=== PATIENT | male | born 1950 | race Caucasian/White ===

== ENCOUNTER 2017-10-13 05:14 | Inpatient (IN) | payer MEDICARE, OTHER ==
[2017-10-13] MEDS ORDERED: HYDROcodone/Acetaminophen 5/325 mg Tablet ONE (05:49)
[2017-10-13 05:59] LABS: #Eosinphils 0.1 thou/uL (0.0-0.7); #Lymphocytes 2.4 thou/uL (1.20-3.40); #Monocytes 0.2 thou/uL (0.11-0.59); #Neutrophils 10.3 thou/uL (1.40-6.50); %Basophils 0.3 % (0.0-1.0); %Eosinophils 0.4 % (0.0-10.0); %Lymphocytes 18.6 % (21.0-51.0); %Monocytes 1.7 % (0.0-10.0); Hematocrit 53.3 % (42.0-52.0); Mean Platelet Volume 8.7 fL (7.4-10.4); Red Blood Cell (RBC) Count 5.68 mill/uL (4.70-6.10); White Blood Cell (WBC) Count 13.1 thou/uL (4.8-10.8)
[2017-10-13] MEDS ORDERED: Acetaminophen 325 MG TAB ONE (06:14)
[2017-10-13 06:48] LABS: Lactic Acid - Sepsis 3.5 mmol/L (0.5-2.2)
[2017-10-13 06:53] LABS: Anion Gap 14 mmol/L (10-20); BUN (Urea Nitrogen) 24 mg/dL (8.4-25.7); Calc. Creatinine Clearance 0 mL/min (70-130); Carbon Dioxide 25 mmol/L (23-31); Chloride 105 mmol/L (98-107)
[2017-10-13 06:54] LABS: ALT (SGPT) 22 U/L (8-55); AST (SGOT) 18 U/L (5-34); Alkaline Phosphatase 123 U/L (40-150); Bilirubin, Total 1.2 mg/dL (0.2-1.2); Calcium 9.2 mg/dL (7.8-10.44); Estimated GFR-MDRD 68; Globulin 2.8 g/dL (2.4-3.5); Protein, Total 6.7 g/dL (5.8-8.1)
[2017-10-13 06:57] LABS: Troponin I Less than 0.010 ng/mL (< 0.028)
[2017-10-13] MEDS ORDERED: Azithromycin 250 MG TAB ONE (07:29)
--- NOTE | 2017-10-13 08:35 | RAD ---
CHEST 2 VIEWS: Date: 10/13/17 HISTORY: Chest pain. COMPARISON: 05/02/16. FINDINGS: Diffuse interstitial opacities with more focal alveolar consolidation in the right upper lobe and rig ht lower lobe. Pleural effusions are not appreciated. There is no pneumothorax. Sternotomy wires are noted. Stable cardiac silhouette. IMPRESSION: Multilobar pneumonia, Continued surveillance is recommended. POS: [facility]
[2017-10-13 09:39] LABS: Bilirubin Negative (Negative); Blood, Urine Negative (Negative); Glucose, Urine (Dipstick) Negative (Negative); Ketone, Urine Negative (Negative); Nitrite Negative (Negative); Protein, Urine (Dipstick) Negative (Neg-Trace); Urobilinogen 0.2 mg/dL (0.2-1.0)
[2017-10-13] MEDS ORDERED: Ondansetron ODT 4 MG TAB PO PRN (10:52)
[2017-10-13] MEDS ORDERED: Acetaminophen 325 MG TAB PO PRN (10:52)
[2017-10-13] MEDS ORDERED: Ondansetron HCl/PF 4 MG/2 ML Vial IVP PRN (10:52)
[2017-10-13 11:08] VITALS: BMI 30.8
[2017-10-13] MEDS ORDERED: LIDOCAINE HCL TOP PRN (14:30)
[2017-10-13 15:09] LABS: Troponin I 0.108 ng/mL (< 0.028)
--- NOTE | 2017-10-13 17:40 | HP ---
HISTORY OF PRESENT ILLNESS: Mr. Juve Barrera is a very pleasant 66-year-old man treated by Dr. Declan Pérez with known coronary artery disease, status post 3-vessel CABG and he sees Dr. Enmanuel Mcfarland for that, who was hospitalized through the emergency room for chest pain and right-sided mult ilobular pneumonia. The history is taken from the patient himself, outpatient medical records as wel l as input from his who is present at the bedside. He appears to be reliable historian. He ind icates he has had some intermittent, diffuse chest pain that was more of a mild annoyance over the la st few weeks that "I did not tell anybody about." In the wee hours of this morning, about 2:30 a.m., he indicates that he was having diffuse chest pain and shaking chills with some myalgias and joint p ain. He has also had a cough for 1 day. He denies any shortness of breath, palpitations or any barbara ting spells. He has not been diaphoretic and had no nausea or vomiting. He has not had any ankle sw elling. He was seen in the emergency room, found to have right-sided pneumonia in addition to initia l treatment, he was recommended for hospitalization for continued treatment. PAST MEDICAL HISTORY: 1. Coronary artery disease, status post 3-vessel bypass done by Dr. Maxx Jones. 2. Chronic headaches (status post multiple specialists evaluations and multiple treatments to includ e Botox therapy). 3. Allergy problems with history of immunotherapy. 3. Hypertension. 4. Hyperlipidemia. PAST SURGICAL HISTORY: Three-vessel bypass. ALLERGIES/SENSITIVITIES: Dye used in cardiac catheterization associated with a rash and diffuse bodi ly itching. CURRENT MEDICATIONS: Include, amlodipine 2.5 mg daily, zolpidem 10 mg p.o. at bedtime, Valsartan/hyd rochlorothiazide 160/12.5 one daily, rosuvastatin 40 mg daily, omega 3 fish oil one daily, metoprolol succinate 50 mg at bedtime, lansoprazole 30 mg daily, aspirin 325 mg daily, Elavil 10 mg p.o. at bed time, lidocaine HCL 75 mg topically p.r.n. PHYSICAL EXAMINATION: VITAL SIGNS: Blood pressure 110/56, temperature 98.4, pulse 81, respiratory rate 16, pulse oximetry 92%. GENERAL: Alert, pleasant, in no acute distress, sitting in the chair beside the bed. He is able to talk in full sentences without difficulty. His breathing is nonlabored. There is no use of accessor y muscles or retractions. HEENT: No conjunctivitis. Oral cavity without erythema or exudate. NECK: Supple without lymphadenopathy or thyromegaly. LUNGS: Clear to auscultation without crackles or wheezes. CARDIAC: Regular rate and rhythm without murmur, gallop or rub. There is a well-healed surgical sca r (consistent with sternotomy). ABDOMEN: Soft, nontender. SKIN: With normal texture and appearance. EXTREMITIES: Without edema. LABORATORY DATA AND IMAGING: White blood cell count 13, hemoglobin 17.1. Initial lactic acid 3.5 no w 1.6, GFR 68, creatinine 1.09, potassium 3.9, troponin I negative. Urinalysis essentially negative. Chest x-ray report indicates right-sided multilobar infiltrates. Electrocardiogram, sinus tachycar cyrus, rate 104. No acute ST-T wave changes of any specificity. ASSESSMENT: 1. Chest pain in a man with known coronary artery disease. This could be part of his coronary arter y disease, but this could also be related to his pulmonic infection. 2. Coronary artery disease, status post 3-vessel bypass done by Dr. Maxx Jones. 3. Chronic headaches (status post multiple specialists evaluations and multiple treatments to includ e Botox therapy). 4. Allergy problems with history of immunotherapy. 5. Hypertension. 6. Hyperlipidemia. PLAN: 1. Hospitalization. 2. Serial cardiac enzymes. 3. Empiric antibiotic therapy.
[2017-10-13] MEDS ORDERED: Acetaminophen 500 MG TAB PO PRN (19:55)
[2017-10-13] MEDS: cefTRIAXone\\ROCEPHIN 1 GM, Syringe 0.4 ML in Sterile Water 9.6 ML SLOW IVP SCH (20:27)
[2017-10-13] MEDS: Zolpidem Tartrate 5 MG TAB PO SCH (20:28)
[2017-10-13] MEDS: Amitriptyline HCl 10 MG TAB PO SCH (20:28)
[2017-10-13 20:30] LABS: Troponin I 0.058 ng/mL (< 0.028)
[2017-10-13] MEDS ORDERED: Zolpidem Tartrate 5 MG TAB PO SCH (21:00)
[2017-10-14] MEDS ORDERED: cefTRIAXone\\ROCEPHIN 1 GM in Sodium Chloride 0.9% 100 ML IVPB SCH (08:00)
[2017-10-14] MEDS ORDERED: Non-Formulary Item 1 EACH (Valsartan/Hydrochlorothiazide [Valsartan-Hctz 160-12.5 Mg Tab] PO SCH (09:00)
[2017-10-14] MEDS: Fish Oil 1,000 MG CAP PO SCH (09:11)
[2017-10-14] MEDS: Aspirin 325 MG TAB PO SCH (09:11)
[2017-10-14] MEDS: Amlodipine 5 MG TAB PO SCH (09:11)
[2017-10-14] MEDS: Azithromycin 250 MG TAB PO SCH (09:11)
[2017-10-14] MEDS: Valsartan 80 MG TAB PO SCH (09:12)
[2017-10-14] MEDS: Hydrochlorothiazide 25 MG TAB PO SCH (09:12)
[2017-10-14] MEDS: cefTRIAXone\\ROCEPHIN 1 GM, Syringe 0.4 ML in Sterile Water 9.6 ML SLOW IVP SCH ×2 (09:18→20:42)
[2017-10-14] MEDS ORDERED: 1/2 NS w/KCL 20 mEq 1,000 ML IV SCH (10:45)
--- NOTE | 2017-10-14 10:59 | PRG ---
DATE OF SERVICE: 10/14/2017 SUBJECTIVE: The patient is feeling much better this morning. No complaints of cough, fever and barrie estion. OBJECTIVE: VITAL SIGNS: T-max 100.1, pulse 66, respirations 16, pulse ox 93, blood pressure 113/55. HEART: Regular rate and rhythm. LUNGS: Clear. ABDOMEN: Soft. LABORATORY: None. Cultures negative. Fluid culture negative. ASSESSMENT: 1. Multilobar pneumonia, right upper and lower lobes. 2. Chest pain with known coronary artery disease. 3. Coronary artery disease, status post 3-vessel bypass. 4. Allergies. 5. Hypertension. 6. Hyperlipidemia. 7. History of retinal artery cerebrovascular accident. PLAN: 1. Continue IV Zithromax and Rocephin. The patient is doing well with this treatment. 2. Hydration today with normal saline. 3. Cardiology consulted for chest pain and history of bypass as well as coronary artery disease.
--- NOTE | 2017-10-14 15:33 | CON ---
DATE OF CONSULTATION: 10/14/2017 REASON FOR CONSULTATION: Chest pain. PRIMARY SOFTWARE DATABASE ARCHITECT: Enmanuel Mcfarland M.D. HISTORY OF PRESENT ILLNESS: Mr. Barrera is a very pleasant 66-year-old white gentleman who comes to [facility] for evaluation of a cough and pain. He has been dealing with a cough for the last few da ys. Earlier last night, he woke up at about 2:30 a.m. with shaking chills and diffuse aches and pain s including chest pain. He came in. He was diagnosed with multilobar pneumonia. He was started on IV antibiotics and he is feeling much better now. During all this episode, he did have episodes of c hest pain and troponins were drawn and they were slowly increasing, so Cardiology is being consulted for further evaluation and care. He does have a history of coronary artery disease with severe left main disease requiring 3-vessel bypass in 2013. He has never had any problems with these bypasses si nce this was done. PAST MEDICAL HISTORY: 1. Coronary artery disease, status post 3-vessel bypass. 2. Chronic headaches. 3. Hypertension. 4. Hyperlipidemia. 5. Allergic problems with immunotherapy in the past. PAST SURGICAL HISTORY: CABG as above. OUTPATIENT MEDICATIONS: Include, 1. Amlodipine 2.5 mg a day. 2. Zolpidem. 3. Valsartan/hydrochlorothiazide 160/12.5 a day. 4. Crestor 40 mg a day. 5. [place]-3 fish oil. 6. Metoprolol succinate 50 mg at bedtime. 7. Lansoprazole 30 mg a day. 8. Aspirin 325 mg a day. 9. Elavil 10 mg at bedtime. 10. Lidocaine topical. ALLERGIES: IODINE causes rash and diffuse body itching. REVIEW OF SYSTEMS: A 12-point review of systems was done and is all negative unless stated in the hi story of present illness. PHYSICAL EXAMINATION: VITAL SIGNS: Temperature 98.0, pulse 62, respiration rate 16, satting 94% on room air, blood pressur e 118/61. GENERAL: Awake, alert, oriented x3, in no distress. HEENT: Normocephalic, atraumatic. NECK: Supple. LUNGS: Clear. CARDIOVASCULAR: S1, S2. No S3 or S4. No murmurs or rubs. ABDOMEN: Soft, positive bowel sounds. EXTREMITIES: No edema. SKIN: Warm and dry. LABORATORY WORK: Reviewed. White count of 13, hemoglobin of 17, hematocrit 53, blood count 271. Ch emistry was unremarkable except for lactic acid of 3.5 down to 1.6 and glucose of 153. Troponin went from undetectable to 0.1 and then 0.05. UA was unremarkable. Chest x-ray done on admission shows multilobar pneumonia. ASSESSMENT AND PLAN: 1. Multilobar pneumonia. 2. Chest pain. 3. Coronary artery disease. 4. Hypertension. PLAN: 1. Most likely the slight trend in troponins is related to his pneumonia and his chest pain is mostl y related to when he coughs. At this time, most likely related to the pneumonia. 2. We will get an echocardiogram and if this looks unchanged, he should be okay to just get treated for pneumonia. Thank you for letting us participate in the care of your patient. Dr. Mcfarland, his primary Cardiology , will follow up in the morning.
[2017-10-14] MEDS: Amitriptyline HCl 10 MG TAB PO SCH (20:43)
[2017-10-14] MEDS: Zolpidem Tartrate 5 MG TAB PO SCH (20:43)
[2017-10-15 05:32] LABS: #Eosinphils 0.3 thou/uL (0.0-0.7); #Lymphocytes 1.4 thou/uL (1.20-3.40); #Monocytes 0.7 thou/uL (0.11-0.59); #Neutrophils 7.3 thou/uL (1.40-6.50); %Basophils 0.3 % (0.0-1.0); %Eosinophils 3.4 % (0.0-10.0); %Lymphocytes 14.8 % (21.0-51.0); %Monocytes 6.9 % (0.0-10.0); Hematocrit 43.7 % (42.0-52.0); Mean Platelet Volume 9.2 fL (7.4-10.4); Red Blood Cell (RBC) Count 4.67 mill/uL (4.70-6.10); White Blood Cell (WBC) Count 9.7 thou/uL (4.8-10.8)
[2017-10-15 05:44] LABS: Anion Gap 9 mmol/L (10-20); BUN (Urea Nitrogen) 13 mg/dL (8.4-25.7); Calc. Creatinine Clearance 122 mL/min (70-130); Calcium 8.9 mg/dL (7.8-10.44); Carbon Dioxide 27 mmol/L (23-31); Chloride 106 mmol/L (98-107); Estimated GFR-MDRD 85
--- NOTE | 2017-10-15 08:27 | PRG ---
DATE OF SERVICE: 10/15/2017 SUBJECTIVE: The patient is doing much better this morning. No complaints of fever. He is feeling m uch better, desiring to go home. OBJECTIVE: VITAL SIGNS: Temperature 98.4, pulse 68, respiration rate 18, pulse ox 94, blood pressure 120/58. HEART: Regular rate and rhythm. LUNGS: Relatively clear bilaterally. ABDOMEN: Soft. EXTREMITIES: With no edema. LABORATORY: White count 9.7, H&H 14 and 43. Electrolytes normal. Creatinine 0.9, BUN 13, blood sug ar 103. UA negative. ASSESSMENT: 1. Multilobular pneumonia, right upper and lower lobes. 2. Chest pain with known coronary artery disease. 3. Status post coronary artery bypass x3. 4. Allergies. 5. Hypertension. 6. Hyperlipidemia. 7. History of retinal artery cerebrovascular accident. PLAN: 1. Continue Rocephin and Zithromax. 2. Discuss with Dr. Mcfarland. 3. Plan to obtain a Pulmonary consult. Hopefully prior to discharge. 4. The patient will need a repeat chest x-ray in 4 weeks. 5. Plan to discharge on antibiotics per Pulmonary.
--- NOTE | 2017-10-15 08:29 | PRG ---
DATE OF SERVICE: 10/15/2017 Mr. Barrera is feeling better and not having chest pain, not short of breath. PHYSICAL EXAMINATION: VITAL SIGNS: Blood pressure 120/58, pulse is 68. Temperature 98.4. LUNGS: Clear. CARDIAC: Normal S1, S2. ABDOMEN: Soft, nontender. EXTREMITIES: There is no edema. ASSESSMENT: 1. Pneumonia. 2. Increased troponin, probably demand ischemia. 3. Previous bypass surgery. PLAN: 1. Repeat chest x-ray. 2. Consult Pulmonary prior to discharge.
[2017-10-15] MEDS: Fish Oil 1,000 MG CAP PO SCH (10:00)
[2017-10-15] MEDS: Valsartan 80 MG TAB PO SCH (10:01)
[2017-10-15] MEDS: Aspirin 325 MG TAB PO SCH (10:01)
[2017-10-15] MEDS: Azithromycin 250 MG TAB PO SCH (10:02)
[2017-10-15] MEDS: Hydrochlorothiazide 25 MG TAB PO SCH (10:02)
[2017-10-15] MEDS: Amlodipine 5 MG TAB PO SCH (10:02)
[2017-10-15] MEDS: cefTRIAXone\\ROCEPHIN 1 GM, Syringe 0.4 ML in Sterile Water 9.6 ML SLOW IVP SCH (10:20)
--- NOTE | 2017-10-15 11:54 | RAD ---
TWO VIEWS OF THE CHEST: HISTORY: Pneumonia followup. COMPARISON: 10/13/2017 FINDINGS: A single view of the chest shows a normal sized cardiomediastinal silhouette. The patient is status post sternotomy. The right sided infiltrates have significantly improved and have nearly completely resolved. A calcified granuloma is projected over the right thorax. IMPRESSION: Near complete resolution of right-sided pneumonia. POS: [facility]
--- NOTE | 2017-10-15 12:37 | CON ---
DATE OF CONSULTATION: 10/15/2017 HISTORY OF PRESENT ILLNESS: Juve Barrera is a 66-year-old gentleman, 235 pounds, 6 feet 1 inch, BMI o f 30, he was admitted to the hospital with tightness in the chest symptoms as well as shortness of br eath. He is a nonsmoker. X-ray shows a right-sided infiltrate. His troponin was elevated. It is felt to be a demand ischemia associated elevated troponin. He is coughing up sputum that appears to be relat ively clear. He has chills and sweats at that time when he presented to the ER. Denies any previous history of tobacco abuse. Denies history of pneumonia. PAST MEDICAL HISTORY: Coronary artery disease, status post CABG in 2013, and history of hyperlipidem ia. PAST SURGICAL HISTORY: CABG, otherwise none. CHRONIC MEDICATIONS: From home includes amlodipine 2.5, Ambien 10, losartan, Crestor, metoprolol 15, enoxaparin 30, aspirin, amitriptyline. ALLERGIES: IODINE. SOCIAL/FAMILY HISTORY: Otherwise unremarkable. PHYSICAL EXAMINATION: VITAL SIGNS: Blood pressure 120/58, sats 94% on room air, temperature 98. CHEST: Decreased breath sounds, no wheezing. CARDIAC: Normal S1, S2. No gallops. ABDOMEN: Soft. No masses. LABORATORY DATA: White count is 9.6, H&H 14 and 43. Electrolytes are normal. X-ray shows much improvement in his extensive right-sided infiltrate. IMPRESSION: Community-acquired pneumonia, culture negative, probably strep pneumococcus. PLAN: He appears to be able to be discharged home, and follow up in the office in 2 weeks.
--- NOTE | 2017-10-15 14:13 | DIS ---
DATE OF ADMISSION: 10/13/2017 DATE OF DISCHARGE: 10/15/2017 DISCHARGE DIAGNOSES: 1. Multilobar pneumonia consistent with community-acquired pneumonia. 2. Chest pain/demand ischemia. 3. Coronary artery disease, status post bypass. 4. Allergies. 5. Hypertension. 6. Hyperlipidemia. 7. History of retinal artery cerebrovascular accident. CONSULTANTS: Dr. Mcfarland and Dr. Espinal. DISCHARGE MEDICATIONS: Valsartan/HCTZ 150/12.5 p.o. daily, Ambien 10 at bedtime p.r.n., Crestor 40 d aily, fish oil 1000 mg daily, metoprolol 50 mg daily, Prevacid 30 mg daily, aspirin 325 mg daily, Nor vasc 2.5 mg daily, amitriptyline 10 mEq p.o. at bedtime, Zithromax 500 p.o. daily x5. BRIEF HISTORY: This is a 66-year-old white male with history of coronary artery disease status post bypass who was admitted for chest pain and right-sided multilobular pneumonia. The patient was doing relatively well until the past several weeks he has been having diffuse chest pain intermittently. The morning of admission he developed severe shaking chills, subjective fever and chest pain. He had a cough started also. He denied any shortness of breath or palpitations. He was seen in the emerge ncy room where a significant pneumonia was noted and therefore admitted to the hospital. HOSPITAL COURSE: Troponin levels were slightly elevated, possibly due to pneumonia or demand ischemi a. IV Zithromax and IV Rocephin was initiated. The patient over 24 hours improved significantly. Vijay Mcfarland was consulted who felt that there was minimal cardiac involvement. Dr. Espinal confirmed the community-acquired pneumonia and recommended discharge with antibiotics. Chest x-ray showed signific ant improvement from the admit to the one prior to discharge. The patient's white count went from 13 to 9.7, H&H 14 and 43, platelets of 171. Electrolytes were normal. Creatinine 0.9, BUN 30, troponi n 0.108, 0 058. UA was negative.
[2017-10-15 15:31] VITALS: TEMP 98.2
[2017-10-15 15:32] VITALS: BP 149/72
== END 2017-10-15 15:47 | disposition home or self-care (01) | DRG 194 ==
LOC: ERS 05:14 → 2NO 10:49
PROVIDERS: ADMIT Internal Medicine; ATTEND Internal Medicine
DX: J18.9 Pneumonia, unspecified organism (principal); I24.8 Other forms of acute ischemic heart disease; I25.10 Atherosclerotic heart disease of native coronary artery without angina pectoris; I10 Essential (primary) hypertension; Z95.1 Presence of aortocoronary bypass graft; E78.5 Hyperlipidemia, unspecified; Z86.73 Personal history of transient ischemic attack (TIA), and cerebral infarction without residual deficits
CPT/HCPCS: 36415; 71020; 80048; 80053; 81003; 82553; 83605; 84484; 85025; 87040; 87086; 93005; 93306; 96361; 96374; A4216; J0696; J7050